=== PATIENT | female | born 1970 | race Caucasian/White ===

== ENCOUNTER 2017-07-14 13:48 | Emergency (ER) | payer MEDICAID ==
[2017-07-14] MEDS: HYDROCODONE/APAP (5/325) TAB PO (16:29)
[2017-07-14] MEDS: KETOROLAC 30 MG INJ IM (16:29)
== END 2017-07-14 17:00 | disposition home or self-care (01) ==
LOC: FTE 13:48
DX: M25.511 Pain in right shoulder (principal); E11.9 Type 2 diabetes mellitus without complications
CPT/HCPCS: 71045; 72040; 81025; 93005; 96372; 99284-25